=== PATIENT | male | born 1950 | race Caucasian/White ===

== ENCOUNTER → 2016-10-06 | Outpatient (CLI) | payer BC, MEDICARE ==
[~2016-10-06] MED LIST: ASPI1TAB PO; NICO7DIS23 TD; RANI150T PO; SIMV80TA PO; SYMB80INH INH; TIOT18INH INH
--- NOTE | 2016-10-06 21:19 | ECGEPIP ---
Stationary ECG Study [facility] Test Date: 2016-10-06 Pat Name: ANGELICA ARMSTRONG Department: Room: - Gender: M Policy Director: TIFFANY : 1950 Requested By: SHAHEEN Mishra Order Number: [id number] Reading MD: Louise Ramos Measurements Intervals [place] Rate: 57 P: 59 PA: 168 QRS: -25 QRSD: 90 T: 47 QT: 372 QTc: 365 Interpretive Statements SINUS BRADYCARDIA BORDERLINE LEFT AXIS DEVIATION NO PRIOR Electronically Signed On 10-06-2016 21:19:15 EST by Louise Ramos
== END ==
LOC: M EKG 15:12
PROVIDERS: ATTEND Anesthesiology
DX: Z01.818 Encounter for other preprocedural examination (principal); R94.31 Abnormal electrocardiogram [ECG] [EKG]

== ENCOUNTER → 2016-10-10 | Day surgery (SDC) | payer MEDICARE ==
[~2016-10-10] VITALS: Ht 177.8 cm; Wt 78.5 kg
[~2016-10-10] MED LIST changes: +BUPIVACAINE HCL 0.25% 30 ML VIAL As Ordered ONE; +BUPIVACAINE HCL 0.25% 30 ML VIAL XX ONE; +GLYCOPYRROLATE INJ 0.2 MG/ML 2 ML VIAL As Ordered ONE; +KETOROLAC 30 MG/ML VIAL (J1885) As Ordered ONE; +KETOROLAC 30 MG/ML VIAL (J1885) IV PRN; +LIDOCAINE 1% SDV INJ 30 ML VIAL As Ordered ONE; +LIDOCAINE 1% SDV INJ 30 ML VIAL XX ONE; +LIDOCAINE 2% INJ 100 MG/5 ML SDV (FOR ANES.) As Ordered ONE; +LR 1,000 ML IV SCH; +MIDAZOLAM INJ 2 MG/2 ML VIAL (J2250) As Ordered ONE; +NEOSTIGMINE 1MG/ML 5 ML SYRINGE (J2710) As Ordered ONE; +NICO7DIS2 TD; -NICO7DIS23 TD; +NORCO, ANEXSIA 5/325MG TABLET (HYDROcodone/ACETAMINOPHEN) PO PRN; +ONDANSETRON 4MG/2ML VIAL (J2405) As Ordered ONE; +ONDANSETRON 4MG/2ML VIAL (J2405) IV PRN; +PROPOFOL 200 MG/20 ML VIAL As Ordered ONE; +ROCURONIUM BROMIDE 50 MG/5 ML VIAL As Ordered ONE; +fentaNYL 100 MCG/2 ML INJECTION (J3010) As Ordered ONE
[2016-10-10] MEDS: fentaNYL 100 MCG/2 ML INJECTION (J3010) IV PRN ×4 (12:25→12:50)
--- NOTE | 2016-10-10 12:49 | RO ---
DATE OF PROCEDURE: 10/10/2016 PREPROCEDURE DIAGNOSES: Recurrent right inguinal hernia, new onset left inguinal hernia. POSTPROCEDURE DIAGNOSES: Recurrent right inguinal hernia, new onset left inguinal hernia. PROCEDURE DONE: Robotic-assisted bilateral inguinal hernia repair. SURGEON: Deric Cox MD LINE PRODUCER: Jing Martin NP ESTIMATED BLOOD LOSS: 25 mL. COMPLICATIONS: None. REMARKS: The patient tolerated the procedure well. DESCRIPTION OF PROCEDURE: Mr. Mcneil is a 66-year-old gentleman who a long time ago had a right inguinal repair and noted recurrence of the bulge over the area with associated discomfort. On my examination, the patient also seems to have possibly a small direct hernia on the left side, though he is asymptomatic from this. He was consulted on the surgery, its risks and benefits. With the recurrence, we plan to perform laparoscopic repair with the aid of the da Linh robot platform. The patient received Ancef preoperatively for prophylaxis. He was brought to the operating room and laid supine on the table. General endotracheal anesthesia was started without any complication. Sequential compression device (SCD) boots were placed for deep vein thrombosis (DVT) prophylaxis. He was placed in the Bradley stirrups in a lithotomy position. Soler catheter was placed. His abdomen was prepped and draped in the usual sterile fashion. After a surgical time-out, we began the surgery. Short transverse incision created above the umbilicus. Veress needle inserted in a controlled fashion. CO2 insufflation started at a pressure of 15 mmHg. Using the same incision, a 5 mm Visiport was placed under direct vision of the laparoscope. The insertion site was inspected for injury and none was found. He was placed in a moderate Trendelenburg position to expose both groins. Under direct vision, 8 mm instrument trocars were placed in the right and left lower quadrant area along the umbilical line. An 8 mm camera port was exchanged at the umbilical port site. The robot was maneuvered in between the patient's legs. The trocars were docked, and I unscrubbed and took control of the camera and the instruments at the surgeon's console. On diagnostic laparoscopy over the right groin, a small direct opening is noted. On the left groin, there was no clear hernia on visual examination, but with my assistant professor of forestry putting pressure along the inguinal canal, there was some soft tissue bulging around the direct hernia space. We started over the right groin. The peritoneum overlying the area was opened up, starting at the medial umbilical ligament and going in an arc-like fashion laterally toward the anterior-superior iliac spine at the same area. The peritoneum was dissected free off the abdominal wall. We went through some scarring from the previous hernia surgery and no mesh was found. After reducing the incarcerated preperitoneal fat within the preperitoneal space, there was about a 1.5 cm defect that I could see. We continued our dissection medially, exposing the pubic tubercle. The lining of the hernia defect at the direct hernia space was grabbed. The hernia space was closed using a #2-0 V-Loc, taking the muscles of the abdominal wall and bringing this down toward to the superior edge of the pubic tubercle. After this, we checked for hemostasis and once satisfied, the large 3D Max Light mesh was placed over the area. This was lying flat, appropriately covering both the direct and indirect hernia spaces. A single stitch of #2-0 Vicryl was placed to tack the mesh to the pelvic ridge. We then closed the peritoneum with a running suture of #2-0 V-Loc. Over at the other side in a similar fashion, the peritoneum was opened up and the preperitoneal space exposed. We dissected the indirect hernia space. No hernia was found. Over the direct hernia space, a small amount of preperitoneal fat was reduced, less than 1 cm hernia defect. I did not close this defect as this was quite small. After checking for hemostasis, another large 3D Max Light mesh was placed over the area, adequately covering the direct and indirect hernia spaces, again #2-0 Vicryl stitch was used to tack the mesh to the pubic tubercle of the involved site. Again, after checking for hemostasis, the peritoneal opening was closed with a running stitch of #2-0 V-Loc. The patient tolerated the procedure well and was promptly awakened, extubated, and brought to the recovery room stable.
[2016-10-10 14:00] VITALS: BP 110/67
== END | disposition home or self-care (01) ==
LOC: M SDC 08:25
PROVIDERS: ATTEND Surgery
DX: K40.31 Unilateral inguinal hernia, with obstruction, without gangrene, recurrent (principal); K40.90 Unilateral inguinal hernia, without obstruction or gangrene, not specified as recurrent; J44.9 Chronic obstructive pulmonary disease, unspecified; K21.9 Gastro-esophageal reflux disease without esophagitis; E78.5 Hyperlipidemia, unspecified; Z91.041 Radiographic dye allergy status; Z79.899 Other long term (current) drug therapy; Z79.82 Long term (current) use of aspirin; Z87.891 Personal history of nicotine dependence
CPT/HCPCS: 49651; C1781; J0690; J1885; J2250; J2405; J2710; J3010

== ENCOUNTER → 2022-01-01 | Outpatient (CLI) | payer OTHER ==
[~2022-01-01] MED LIST changes: -ASPI1TAB PO; +ASPI81TA26 PO; -BUPIVACAINE HCL 0.25% 30 ML VIAL As Ordered ONE; -BUPIVACAINE HCL 0.25% 30 ML VIAL XX ONE; -GLYCOPYRROLATE INJ 0.2 MG/ML 2 ML VIAL As Ordered ONE; -KETOROLAC 30 MG/ML VIAL (J1885) As Ordered ONE; -KETOROLAC 30 MG/ML VIAL (J1885) IV PRN; -LIDOCAINE 1% SDV INJ 30 ML VIAL As Ordered ONE; -LIDOCAINE 1% SDV INJ 30 ML VIAL XX ONE; -LIDOCAINE 2% INJ 100 MG/5 ML SDV (FOR ANES.) As Ordered ONE; -LR 1,000 ML IV SCH; -MIDAZOLAM INJ 2 MG/2 ML VIAL (J2250) As Ordered ONE; -NEOSTIGMINE 1MG/ML 5 ML SYRINGE (J2710) As Ordered ONE; -NORCO, ANEXSIA 5/325MG TABLET (HYDROcodone/ACETAMINOPHEN) PO PRN; -ONDANSETRON 4MG/2ML VIAL (J2405) As Ordered ONE; -ONDANSETRON 4MG/2ML VIAL (J2405) IV PRN; -PROPOFOL 200 MG/20 ML VIAL As Ordered ONE; -ROCURONIUM BROMIDE 50 MG/5 ML VIAL As Ordered ONE; -SIMV80TA PO; +SIMV80TA13 PO; -fentaNYL 100 MCG/2 ML INJECTION (J3010) As Ordered ONE
== END ==
LOC: M PLARAD 09:39
PROVIDERS: ATTEND Student in an Organized Health Care Education/Training Program
DX: C67.9 Malignant neoplasm of bladder, unspecified (principal); J43.2 Centrilobular emphysema; J84.10 Pulmonary fibrosis, unspecified; I51.7 Cardiomegaly; I70.0 Atherosclerosis of aorta; I25.10 Atherosclerotic heart disease of native coronary artery without angina pectoris; Z95.828 Presence of other vascular implants and grafts; L72.3 Sebaceous cyst; K76.0 Fatty (change of) liver, not elsewhere classified; N20.0 Calculus of kidney
CPT/HCPCS: 78815; A9552

== ENCOUNTER → 2022-04-16 | Outpatient (CLI) | payer OTHER | LOC: M PLARAD 14:35 | PROVIDERS: ATTEND Student in an Organized Health Care Education/Training Program | DX: C67.9 Malignant neoplasm of bladder, unspecified (principal); Z92.21 Personal history of antineoplastic chemotherapy | CPT/HCPCS: 78815; A9552 ==

== ENCOUNTER → 2024-09-09 | Outpatient (CLI) | payer OTHER, MEDICARE | LOC: M PLARAD 07:31 | PROVIDERS: ATTEND Nurse Practitioner Family | DX: C67.8 Malignant neoplasm of overlapping sites of bladder (principal) | CPT/HCPCS: 78815; A9552 ==